=== PATIENT | male | born 1995 | race Caucasian/White ===

== ENCOUNTER 2017-09-24 20:13 | Emergency (ER) | payer SELFPAY ==
--- NOTE | 2017-09-24 20:50 | ED Physician Documentation ---
Foot Injury - HISTORIAN Historian: patient, friend - [facility] Stated Complaint: right foot pain Chief Complaint: Foot Injury Additional Information: pt playing kick ball when accidentally kicked steel post set in cement-buthe was wearing thick soled boots. c/o pain base metatarsals 3-4-5. denies ankle knee or hip pain or other injury Onset: days ago (noon today) Where: home Severity: mild, moderate Context: direct blow Associated Symptoms:: snapping sensation. denies: numbness distally, swelling, unable to bear weight (walks w/limp) Modifying Factors:: pain on movement - ROS CONST: no problems CVS/RESP: none NEURO: denies: headache GI/: denies: problems urinating, nausea, vomiting MS/SKIN/LYMPH: denies: neck pain, back pain, foot swelling, ankle swelling - PAST HX Past History: none Immunizations: UTD Allergies/Adverse Reactions: Allergies Allergy/AdvReac Type Severity Reaction Status Date / Time No Known Allergies Allergy Verified 09/24/17 20:30 Home Medications: Ambulatory Orders Medication Instructions Recorded NK [NK] 09/24/17 - SOCIAL HX Smoking History: greater than 1 pack/day Alcohol Use: none - FAMILY HX Family History: no significant history - VITAL SIGNS Vital Signs: Vital Signs Temp Pulse Resp BP Pulse Ox 107 H 16 131/67 97 09/24/17 20:15 09/24/17 20:15 09/24/17 20:15 09/24/17 20:15 - REVIEWED ASSESSMENTS Nursing Assessment Reviewed: Yes Vitals Reviewed: Yes ED Results Lab/Radiology - Radiology Radiology Impressions: no fracture seen rt foot - Orders Orders: ED Orders Category Date Time Status FOOT 3 VIEWS OR MORE [RAD] Stat Exams 09/24/17 Ordered Foot Injury Physical Exam - Physical Exam General Appearance: mild distress Gait: limited by pain Neuro: sensation nml, motor nml. No: digital nerve deficit, decreased fine touch Vascular: no vascular compromise. No: pallor, cool skin Tendons: tendon function nml, injury seen (very slight swelling area pain) Leg/Knee/Thigh: uninjured above ankle Skin: intact, warm, dry. No: diaphoresis, decubitus Head/ENT: nml inspection Neck/Back: nml inspection Resp/CVS: chest non-tender, breath sounds nml, heart sounds nml, no resp. distress, lungs clear, reg. rate & rhythm Abdomen: non-tender, pelvis stable Discharge Clincal Impression: traumatic ligt sprain rt foot Referrals: Primary Doctor,No [Primary Care Provider] - 2 Days Condition: Good Disposition: 01 HOME, SELF-CARE Decision to Admit: NO Decision Time: 21:23
[2017-09-24 20:54] VITALS: BP 131/67
--- NOTE | 2017-09-25 07:32 | Diagnostic Imaging Report ---
[facility] [id number] [facility].[address] [id number] Report Submission Date: Sep 24, 2017 9:31:56 PM BLEACHER [facility]ULP Patient Study Name: KEYLA HARRISON Date: Sep 24, 2017 8:42:47 PM BLEACHER PULP Modality Type: CR Gender: M Description: LOWER EXTREMITY : 89 Institution: [facility] Physician: IMER BARAHONA Right foot, 3 views. History: KICKED POLE SET IN CONCRETE, RIGHT LATERAL FOOT PAIN Findings: The osseous structures are intact without acute fracture. The joint space and alignment are normal. There is no soft tissue swelling. Impression: 1. No acute osseous abnormality. Electronically signed on Sep 24, 2017 9:31:56 PM BLEACHER PULP by: Connor BARRERA
== END 2017-09-24 21:35 | disposition home or self-care (01) ==
LOC: ED 20:13
DX: S93.601A Unspecified sprain of right foot, initial encounter (principal); X58.XXXA Exposure to other specified factors, initial encounter; Y93.9 Activity, unspecified; Y99.9 Unspecified external cause status
CPT/HCPCS: 73630; 99283